=== PATIENT | male | born 1975 | race Two or more races ===

== ENCOUNTER 2025-05-09 22:30 | Emergency (ER) | payer OTHER ==
[~2025-05-09] VITALS: Ht 162.6 cm; Wt 77.1 kg
[2025-05-10] MEDS ORDERED: KETOROLAC TROMETHAMINE 60 MG VIAL IM STA (00:58)
[2025-05-10] MEDS ORDERED: KETOROLAC TROMETHAMINE 60 MG VIAL IM ONE (01:02)
== END 2025-05-10 01:48 | disposition home or self-care (01) ==
LOC: ER 22:30
DX: S50.02XA Contusion of left elbow, initial encounter (principal); W18.39XA Other fall on same level, initial encounter; Y93.89 Activity, other specified; Y92.89 Other specified places as the place of occurrence of the external cause; Y99.9 Unspecified external cause status